=== PATIENT | male | born 1995 | race Caucasian/White ===

== ENCOUNTER 2019-05-02 18:34 | Emergency (ER) | payer SELFPAY ==
[2019-05-02 18:41] VITALS: BP 125/87; PULSE 96; TEMP 98.2; BMI 25.0
--- NOTE | 2019-05-02 19:34 | PDOC ---
History of Present Illness - General Chief Complaint: Injury Stated Complaint: LACERATION/R/INDEX FINGER Time Seen by Provider: 05/02/19 19:02 - History of Present Illness Initial Comments: 05/02/19 19:11 CHIEF COMPLAINT: laceration HISTORY OF PRESENT ILLNESS: 23 yo M with no PMH presents to fast track with laceration to R index finger. Patient states he was washing a glass and the glass broke in his hand and cut him. Patient is certain he has had a tetanus shot within the last 10 years. No recent travel or sick contacts. PAST MEDICAL HISTORY: Denies past medical history FAMILY HISTORY: Denies SOCIAL HISTORY: Denies tobacco, alcohol, illicit drug use. SURGICAL HISTORY: Denies ALLERGIES: No known drug allergies REVIEW OF SYSTEMS General/Constitutional: Denies fever or chills. Denies weakness, weight change. HEENT: Denies change in vision. Denies ear pain or discharge. Denies sore throat. Cardiovascular: Denies chest pain or shortness of breath. Respiratory: Denies cough, wheezing, or hemoptysis. Gastrointestinal: Denies nausea, vomiting, diarrhea or constipation. Denies rectal bleeding. Genitourinary: Denies dysuria, frequency, or change in urination. Musculoskeletal: Denies joint or muscle swelling or pain. Denies neck or back pain. Skin: Laceration to R index finger. Neurologic: Denies headache, vertigo, loss of consciousness, or loss of sensation. Psychiatric: Denies depression or anxiety. PHYSICAL EXAM General Appearance: Well-appearing, appropriately dressed. No apparent distress , no intoxication. HEENT: EOMI, PERRLA, normal ENT inspection, normal voice, TMs normal, pharynx normal. No conjunctival pallor. No photophobia, scleral icterus. Neck: Supple. Trachea midline. No tenderness, rigidity, carotid bruit, stridor , lymphadenopathy, or thyromegaly. Respiratory/Chest: Lungs CTAB. No shortness of breath, chest tenderness, respiratory distress, accessory muscle use. No crackles, rales, rhonchi, stridor , wheezing, dullness Cardiovascular: RRR. S1, S2. No JVD, murmur, bradycardia, tachycardia. Vascular Pulses: Dorsalis-Pedis (R): 2+, Dorsalis-Pedis (L): 2+ Gastrointestinal/Abdominal: Normal bowel sounds. Abdomen soft, non-distended. No tenderness or rebound tenderness. No organomegaly, pulsatile mass, guarding , hernia, hepatomegaly, splenomegaly. Lymphatic: No adenopathy, tenderness. Musculoskeletal/Extremities: Normal inspection. FROM of all extremities, normal capillary refill. Pelvis Stable. No CVA tenderness. No tenderness to extremities, pedal edema, swelling, erythema or deformity. Integumentary: 1 inch superficial laceration to dorsal aspect at base of right index finger. Appropriate color, dry, warm. No cyanosis, erythema, jaundice or rash Neurologic: manager retail II-XII intact. Fully oriented, alert. Appropriate mood/affect. Motor strength 5/5. No appreciable EOM palsy, facial droop or sensory deficit. Past History - Past Medical History Allergies/Adverse Reactions: Allergies Allergy/AdvReac Type Severity Reaction Status Date / Time No Known Allergies Allergy Verified 05/02/19 18:43 COPD: No - Psycho Social/Smoking Cessation Hx Smoking History: Never smoked Hx Alcohol Use: No Drug/Substance Use Hx: No *Physical Exam - Vital Signs Last Vital Signs Temp Pulse Resp BP Pulse Ox 98.2 F 96 H 16 125/87 100 05/02/19 18:39 05/02/19 18:39 05/02/19 18:39 05/02/19 18:39 05/02/19 18:39 Procedures - Consent Consent obtained: Verbal, From Patient - Laceration/Wound Repair Right Dorsal Finger 2nd digit Wound Length: to 2.5 cm Wound Explored: clean Wound's Depth, Shape: superficial Irrigated w/ Saline: Yes Betadine Prep: No Anesthesia: 1% Lidocaine Amount of Anesthetic (ccs): 1 Wound Repaired With: Sutures Suture Size/Type: 5:0 (4) Number of Sutures: 4 Sterile Dressing Applied: Yes (xeroform, dry gauze) Splint Applied: No Medical Decision Making - Medical Decision Making 05/02/19 19:33 23 yo M with no PMH presents to fast track with laceration to R index finger. lac repair performed, see procedure note. Advised patient to return for suture removal in 10-14 days. Advised patient of signs and symptoms for return to ED. Patient verbalized understanding and agrees to plan. Discharge - Discharge Information Problems reviewed: Yes Clinical Impression/Diagnosis: Laceration of finger of right hand Qualifiers: Encounter type: initial encounter Finger: index finger Damage to nail status: without damage Foreign body presence: without foreign body Qualified Code(s): S61.210A - Laceration without foreign body of right index finger without damage to nail, initial encounter Condition: Stable Disposition: HOME - Admission No - Follow up/Referral - Patient Discharge Instructions Patient Printed Discharge Instructions: DI for Laceration Repair Additional Instructions: Please go to an urgent care center, your primary care doctor, or an ER for suture removal in 10 days. If you develop redness, swelling, warmth, or streaking from the site of the laceration, please go immediately to be evaluated. - Post Discharge Activity
== END 2019-05-02 19:42 | disposition home or self-care (01) ==
LOC: JERFT 18:34 → JER 18:34 → JERFT 19:42
PROC: 0HQFXZZ Repair Right Hand Skin, External Approach (ICD-10-PCS; principal; 2019-05-02)
DX: S61.210A Laceration without foreign body of right index finger without damage to nail, initial encounter (principal); W25.XXXA Contact with sharp glass, initial encounter; Y93.G1 Activity, food preparation and clean up; Y92.9 Unspecified place or not applicable
CPT/HCPCS: 99281-25